=== PATIENT | male | born 1990 | race Caucasian/White ===

== ENCOUNTER 2023-06-28 14:07 | Inpatient (IN) | payer MEDICAID ==
[~2023-06-28] VITALS: Ht 170.2 cm; Wt 77.1 kg
[2023-06-28 14:08] VITALS: BP 134/89; PULSE 79; RESP 17; TEMP 97.4; O2SAT 98
[2023-06-28] MEDS ORDERED: DICYCLOMINE HCL LIQUID 10 MG/5 ML UDC PO ONE (14:25)
[2023-06-28] MEDS ORDERED: ONDANSETRON 4 MG ODT PO ONE (14:25)
[2023-06-28] MEDS ORDERED: ACETAMINOPHEN EXTRA STRENGTH 500 MG TAB PO ONE (14:25)
[2023-06-28 15:32] LABS: BASOPHILS # (AUTO) 0.1 K/uL (0.00-0.22); BASOPHILS % (AUTO) 0.8 % (0.0-2.0); EOSINOPHILS # (AUTO) 0.1 K/uL (0-0.4); EOSINOPHILS % (AUTO) 0.9 % (0.0-4.0); HEMOGLOBIN 12.4 g/dL (12.0-18.0); LYMPHOCYTES # (AUTO) 0.8 K/uL (2.0-11.5); LYMPHOCYTES % (AUTO) 12.2 % (20.5-51.1); MEAN CORPUSCULAR HEMOGLOBIN 31 pg (27-31); MEAN CORPUSCULAR HGB CONC 33 g/dL (33-37); MEAN CORPUSCULAR VOLUME 91.5 fL (80-94); MONOCYTES # (AUTO) 0.9 K/uL (0.8-1.0); MONOCYTES % (AUTO) 12.7 % (1.7-9.3); NEUTROPHILS # (AUTO) 4.9 K/uL (1.8-7.7); NEUTROPHILS % (AUTO) 73.4 % (42.2-75.2); PLATELET COUNT (AUTO) 248 K/uL (140-450); RED BLOOD CELL COUNT(AUTO) 4.05 MIL/uL (4.20-6.10); RED CELL DISTRIBUTION WIDTH 15.4 % (11.6-13.7); WHITE BLOOD COUNT (AUTO) 6.7 K/uL (4.8-10.8)
[2023-06-28 16:02] LABS: ALBUMIN 3.8 g/dL (3.4-5.0); ANION GAP 17.6 (8-16); CARBON DIOXIDE 23.7 mmol/L (21-32); CREATININE 0.9 mg/dL (0.6-1.3); POTASSIUM 3.3 mmol/L (3.5-5.1); TOTAL BILIRUBIN 0.8 mg/dL (0.0-1.0)
[2023-06-28 16:37] LABS: PROTHROMBIN TIME 10.6 secs (10.8-13.4)
[2023-06-28] MEDS ORDERED: NACL 0.9% 1,000 ML IV ONE ×2 (17:05→18:35)
[2023-06-28] MEDS ORDERED: MORPHINE SULFATE 4 MG/ML SYR IVP ONE (17:05)
--- NOTE | 2023-06-28 17:26 | NUR ---
PT AMBULATED TO BED 12
[2023-06-28] MEDS ORDERED: MORPHINE SULFATE 2 MG/ML SYR IVP PRN (18:35)
--- NOTE | 2023-06-28 19:19 | NUR ---
33 Y/O MALE BIB SELF, PATIENT PRESENTS TO ED WITH ABDOMINAL PAIN FOR 2 DAYS, WORSENED TODAY. PT STATES HE HAD NAUSEA AND 5 EPISODES OF EMESIS TODAY. PT ALSO STATES HE HAD BLOODY DIARRHEA TODAY AROUND NOON. PT STATES HE WAS PUSHING CAR UP HILL AND INCREASED HIS PAIN YESTERDAY. PT STATES HE DRINKS 6-8 16OZ BEERS DAILY WITH LAST DRINK THIS MORNING AND METH USE YESTERDAY. SKIN IS PINK/WARM/CLAMMY; AAOX4, AMBULATES WITH EVEN AND STEADY GAIT; LUNGS CLEAR BL; HR EVEN AND REGULAR; PT DENIES ANY FEVER, CP, SOB, OR COUGH AT THIS TIME; PATIENT STATES PAIN OF 8/10 AT THIS TIME; PATIENT POSITIONED FOR COMFORT; HOB ELEVATED; BEDRAILS UP X2; BED DOWN. ER MD MADE AWARE OF PT STATUS. CALL LIGHT WITHIN REACH. PMH: HEART MURMUR, ETOH USE NKA
--- NOTE | 2023-06-28 19:25 | NUR ---
Patient awake and comfortable in bed. Complains of 7/10 generalized abdominal pain. Respirations regular and unlabored. Side rail up and call light within reach.
[2023-06-28] MEDS: MORPHINE SULFATE 4 MG/ML SYR IVP PRN (19:58)
[2023-06-28 21:40] VITALS: BP 130/88; PULSE 68; PULSE 71; RESP 18; TEMP 98.3; O2SAT 98
--- NOTE | 2023-06-28 21:57 | NUR ---
Patient will be admitted to care of Dr. Wheat. Admited to Telemetry. Will go to room 107B. Belongings list completed. Report to Aimee BRANHAM.
[2023-06-28] MEDS ORDERED: POTASSIUM CHLORIDE 10 MEQ TABER PO ONE (22:00)
[2023-06-28 23:51] VITALS: PULSE 67
[2023-06-29] VITALS (7 sets, daily range): BP systolic 121–150; BP diastolic 79–101; PULSE 62–81; RESP 16–18; TEMP 96.9–98.6; O2SAT 98–99
[2023-06-29] MEDS ORDERED: POTASSIUM CHLORIDE 10 MEQ TABER PO ONE ×2 (00:11→01:00)
[2023-06-29] MEDS: MORPHINE SULFATE 4 MG/ML SYR IVP PRN (00:41)
[2023-06-29] MEDS ORDERED: ONDANSETRON 4 MG/2 ML VIAL IVP PRN (06:15)
[2023-06-29 06:54] LABS: ANION GAP 12.4 (8-16); CARBON DIOXIDE 26.8 mmol/L (21-32); CREATININE 0.7 mg/dL (0.6-1.3); POTASSIUM 4.2 mmol/L (3.5-5.1)
[2023-06-29 06:59] LABS: BASOPHILS % (AUTO) 0.6 % (0.0-2.0); EOSINOPHILS # (AUTO) 0.1 K/uL (0-0.4); EOSINOPHILS % (AUTO) 1.9 % (0.0-4.0); HEMATOCRIT 35.2 % (36-52); HEMOGLOBIN 11.9 g/dL (12.0-18.0); LYMPHOCYTES % (AUTO) 14.5 % (20.5-51.1); MEAN CORPUSCULAR HEMOGLOBIN 31 pg (27-31); MEAN CORPUSCULAR HGB CONC 34 g/dL (33-37); MEAN CORPUSCULAR VOLUME 91.8 fL (80-94); MONOCYTES # (AUTO) 0.8 K/uL (0.8-1.0); MONOCYTES % (AUTO) 12.2 % (1.7-9.3); NEUTROPHILS # (AUTO) 4.6 K/uL (1.8-7.7); NEUTROPHILS % (AUTO) 70.8 % (42.2-75.2); PLATELET COUNT (AUTO) 213 K/uL (140-450); RED BLOOD CELL COUNT(AUTO) 3.84 MIL/uL (4.20-6.10); RED CELL DISTRIBUTION WIDTH 15.5 % (11.6-13.7); WHITE BLOOD COUNT (AUTO) 6.6 K/uL (4.8-10.8)
--- NOTE | 2023-06-29 07:18 | NUR ---
ASSUMED CONTINUITY OF CARE. INITIAL ASSESSMENT DONE. KEEP COMFORTABLE ON BED. EXPLAINED USE OF CALL LIGHT/BED/TV/BATHROOM. VERBALIZED UNDERSTANDING. CALL LIGHT WITHIN REACH.
[2023-06-29] MEDS ORDERED: LORazepam 1 MG TAB PO PRN ×2 (08:40)
--- NOTE | 2023-06-29 08:45 | NUR ---
PATIENT HAS BEEN SCREENED AND CATEGORIZED HIGH NUTRITION RISK. PATIENT WILL BE SEEN WITHIN 1-2 DAYS OF ADMISSION. 06/29/23-06/30/23 [facility] REFERRAL RECEIVED FOR PATIENT FOR NAUSEA/VOMITING X3 DAYS ON 06/29/23. KAUSHIK TRE[address] RD
[2023-06-29 09:08] LABS: ALBUMIN 3.6 g/dL (3.4-5.0); BILIRUBIN,DIRECT 0.3 mg/dL (0.0-0.3); TOTAL BILIRUBIN 1.6 mg/dL (0.0-1.0)
[2023-06-29] MEDS: FOLIC ACID 1 MG TAB PO SCH (09:22)
[2023-06-29] MEDS: CYANOCOBALAMIN 100 MCG TAB PO SCH (09:22)
[2023-06-29] MEDS: MULTIVITAMIN 1 TAB PO SCH (09:22)
[2023-06-29] MEDS: THIAMINE 100 MG TAB PO SCH (09:22)
[2023-06-29] MEDS: LACTATED RINGERS 1,000 ML IV SCH ×3 (09:23→22:09)
--- NOTE | 2023-06-29 12:59 | NUR ---
06/29/23 RD INITIAL ASSESSMENT COMPLETED PLEASE REFER TO NUTRITION ASSESSMENT UNDER CARE ACTIVITY FOR ESTIMATED NUTRITIONAL NEEDS. 1. CONTINUE CLEAR LIQUIDS DIET TOLERATED AND ONCE MEDICALLY APPROPRIATE ADVANCE TO FULL LIQUIDS. 2. SECRETARY SPECIALIST ENCOURAGED PATIENT TO FOLLOW PANCREATITIS NUTRITION GIVEN. 3. SECRETARY SPECIALIST WILL CONTINUE TO MONITOR PATIENTS GI FUNCTION, NUTRITION RELATED LAB VALUES, AND PO INTAKE. 4. RD TO FOLLOW-UP 3-5 DAYS, MODERATE RISK REVIEWED BY YORDY MAURER RD
--- NOTE | 2023-06-29 14:25 | NUR ---
DC PLANN[age] YRS OLD MALE PATIENT WAS ADMITTED FROM HOME WITH A DX OF ALCOHOLIC PANCREATITIS. PATIENT HAS A HX OF ALCOHOL ABUSE. CT ABD/PELVIS SHOWED ACUTE PANCREATITIS. LIPASE LEVEL 2389 ADMINISTERED IVF, BANANA BAG AND ATIVAN PO FOR WITHDRAWAL SYMPTOMS. DC PLAN TO GO HOME WHEN STABLE. CM TO FOLLOW
--- NOTE | 2023-06-29 15:43 | NUR ---
Staff Counsel This Airport Manager conducted a discharge planning assessment and during this time, Pt. alerted PERSONNEL RECRUITER that he was homeless and has an alcohol dependency. Additionally, pt. who has family issues, is homeless, has limited to no support, is trying to find employment, and has alcoholic pancreatitis. PERSONNEL RECRUITER provided pt with numerous resources including homelessness and substance abuse. Pt. agreed to explore resources PERSONNEL RECRUITER provided to gain access to fpc and substance treatment. PERSONNEL RECRUITER encouraged pt. to call [facility] to get support for housing/fpc as well as enter a treatment program. Pt. already formed an opinion about any treatment programs, they are not going to help When pt. is discharged, he will need an [employer] PERSONNEL RECRUITER attempted to educate pt. but pt. was not interested. PERSONNEL RECRUITER will remain available as needed.
--- NOTE | 2023-06-29 19:05 | NUR ---
REPORT GIVEN TO ISI MONTANEZ. IVF INFUSING WELL. IN STABLE CONDITION.
--- NOTE | 2023-06-29 19:06 | NUR ---
RECEIVED BEDSIDE REPORT FROM GLADYS URBANO FOR CONTINUITY OF CARE. PATIENT IS AWAKE AND STABLE. A&OX4. VERBALLY RESPONSIVE AND ABLE TO FOLLOW COMMANDS. DENIES PAIN AT THIS TIME. VSS. ON ROOM AIR WITH NO APPARENT S/SX OF ACUTE DISTRESS. RESPIRATIONS EVEN AND UNLABORED. IV SITE TO THE RAC 18G PATENT/INTACT WITH LR INFUSING AT 150 ML/HR. SKIN IS INTACT AND PATIENT IS CONTINENT. UTILIZES BEDSIDE URINAL. PLAN OF CARE AND WHITE COMMUNICATION BOARD UPDATED. ALL SAFETY MEASURES IN PLACE. CALL LIGHT WITHIN REACH. ENCOURAGED TO CALL FOR ANY NEEDS/ASSISTANCE. BED IN LOW/LOCKED POSITION. SIDE RAILS X2 UP. WILL CONTINUE TO MONITOR.
--- NOTE | 2023-06-29 21:05 | NUR ---
PATIENT REPORTS PAIN LEVEL REDUCING TO 2/10 AFTER PRN MEDICATION. RESPIRATIONS EVEN AND UNLABORED WITH NO APPARENT S/SX OF ACUTE DISTRESS. SNACKS PROVIDED PER PATIENT REQUEST. WHITE COMMUNICATION BOARD UPDATED. ALL SAFETY MEASURES IN PLACE. CALL LIGHT WITHIN REACH. ENCOURAGED TO CALL FOR ANY NEEDS/ASSISTANCE. BED IN LOW/LOCKED POSITION. SIDE RAILS X2 UP. WILL CONTINUE TO MONITOR.
--- NOTE | 2023-06-29 23:05 | NUR ---
CHANGED PATIENT'S IVF. TOLERATED WELL. NADR. DENIES PAIN AT THIS TIME. RESPIRATIONS EVEN AND UNLABORED WITH NO APPARENT S/SX OF ACUTE DISTRESS. NO NEEDS AT THIS TIME. WHITE COMMUNICATION BOARD UPDATED. ALL SAFETY MEASURES IN PLACE. CALL LIGHT WITHIN REACH. BED IN LOW/LOCKED POSITION. SIDE RAILS X2 UP. WILL CONTINUE TO MONITOR.
[2023-06-30] VITALS: BP 142/102; PULSE 60; PULSE 66; RESP 18; TEMP 97.8; O2SAT 99
[2023-06-30] MEDS: MORPHINE SULFATE 4 MG/ML SYR IVP PRN (00:20)
--- NOTE | 2023-06-30 01:05 | NUR ---
PATIENT REPORTS PAIN RELIEF TO 2/10 D/T PRN MEDICATION. RESPIRATIONS EVEN AND UNLABORED WITH NO APPARENT S/SX OF ACUTE DISTRESS. NO OTHER NEEDS AT THIS TIME. WHITE COMMUNICATION BOARD UPDATED. ALL SAFETY MEASURES IN PLACE. CALL LIGHT WITHIN REACH. ENCOURAGED TO CALL FOR ANY NEEDS/ASSISTANCE. BED IN LOW/LOCKED POSITION. WILL CONTINUE TO MONITOR.
[2023-06-30] MEDS: LACTATED RINGERS 1,000 ML IV SCH ×3 (02:10→12:52)
[2023-06-30 04:00] VITALS: BP 141/93; PULSE 58; PULSE 67; RESP 16; TEMP 98.3; O2SAT 99
--- NOTE | 2023-06-30 05:05 | NUR ---
ROUNDED ON PATIENT. PATIENT IS STABLE AND ASLEEP NO FACIAL GRIMACING. FLACC=0. CHEST IS RISING AND FALLING SYMMETRICALLY. RESPIRATIONS EVEN AND UNLABORED WITH NO APPARENT S/SX OF ACUTE DISTRESS. WHITE COMMUNICATION BOARD UPDATED. ALL SAFETY MEASURES IN PLACE. CALL LIGHT WITHIN REACH. BED IN LOW/LOCKED POSITION. SIDE RAILS X2 UP. WILL CONTINUE TO MONITOR.
[2023-06-30 06:40] LABS: BASOPHILS % (AUTO) 0.6 % (0.0-2.0); EOSINOPHILS # (AUTO) 0.2 K/uL (0-0.4); HEMATOCRIT 37.1 % (36-52); HEMOGLOBIN 12.5 g/dL (12.0-18.0); LYMPHOCYTES # (AUTO) 1.1 K/uL (2.0-11.5); LYMPHOCYTES % (AUTO) 20.1 % (20.5-51.1); MEAN CORPUSCULAR HEMOGLOBIN 31 pg (27-31); MEAN CORPUSCULAR HGB CONC 34 g/dL (33-37); MEAN CORPUSCULAR VOLUME 91.7 fL (80-94); MONOCYTES # (AUTO) 0.6 K/uL (0.8-1.0); MONOCYTES % (AUTO) 11.1 % (1.7-9.3); NEUTROPHILS # (AUTO) 3.7 K/uL (1.8-7.7); NEUTROPHILS % (AUTO) 65.2 % (42.2-75.2); PLATELET COUNT (AUTO) 229 K/uL (140-450); RED BLOOD CELL COUNT(AUTO) 4.05 MIL/uL (4.20-6.10); RED CELL DISTRIBUTION WIDTH 14.7 % (11.6-13.7); WHITE BLOOD COUNT (AUTO) 5.6 K/uL (4.8-10.8)
[2023-06-30 06:50] LABS: ALBUMIN 3.3 g/dL (3.4-5.0); ANION GAP 11.1 (8-16); CARBON DIOXIDE 29.4 mmol/L (21-32); CREATININE 0.7 mg/dL (0.6-1.3); POTASSIUM 4.5 mmol/L (3.5-5.1); TOTAL BILIRUBIN 2.2 mg/dL (0.0-1.0)
--- NOTE | 2023-06-30 07:02 | NUR ---
ENDORSED PATIENT TO ANDREW RN FOR CONTINUITY OF CARE. PATIENT IS STABLE.
--- NOTE | 2023-06-30 07:46 | NUR ---
PATIENT RECEIVED AT BED SIDE , ON BED REST , SLEEPING , AROUSAL TO VOICE , A/OX4 ,NO SOB , NO COMPLAIN AT THIS TIME , SAFETY ON PLACE , SIDE RAILS UP X2 , BED IN LOWER POSITION , CALL LIGHT WITHIN REACH ON CLEAR LIQUID DIET DIET , SKIN INTACT , AMBULATORY , CONTINENT X2 , PATIENT STILL UNDER OBSERVE .
[2023-06-30 08:00] VITALS: BP 158/95; PULSE 103; PULSE 62; RESP 20; TEMP 96.7; O2SAT 99
[2023-06-30] MEDS: THIAMINE 100 MG TAB PO SCH (08:28)
[2023-06-30] MEDS: FOLIC ACID 1 MG TAB PO SCH (08:28)
[2023-06-30] MEDS: CYANOCOBALAMIN 100 MCG TAB PO SCH (08:29)
[2023-06-30] MEDS: MULTIVITAMIN 1 TAB PO SCH (08:29)
[2023-06-30] MEDS ORDERED: PANTOPRAZOLE 40 MG TABEC PO SCH (09:00)
--- NOTE | 2023-06-30 11:34 | NUR ---
PATIENT ON BED REST , A/OX4 , NO COMPLAIN , US CANCELED , HIS DIET ADVANCE TO REGULAR DIET STILL ON IV FLUID RL 150CC/H , PATIENT STILL UNDER OBSERVE .
[2023-06-30] MEDS ORDERED: HYDROcodone/APAP 10/325 MG 1 TAB TAB PO PRN (11:35)
[2023-06-30] MEDS ORDERED: HYDROcodone/APAP 5/325 MG 1 TAB TAB PO PRN (11:35)
[2023-06-30 15:19] VITALS: BP 142/94; PULSE 71; RESP 20; TEMP 97.1; O2SAT 100
--- NOTE | 2023-06-30 15:42 | NUR ---
PATIENT ON BED REST , A/OX4 , VSS , MED SURGE PATIENT , NO COMPLAIN AT THIS TIME AMBULATORY , CONTINENT , SKIN INTACT , ON REGULAR FOOD TOLERATED , NO N/V ON IV FLUID 150CC/H R/L , PATIENT STILL UNDER OBSERVE .
--- NOTE | 2023-06-30 17:50 | NUR ---
I WENT TO ROOM TO CHECK ON PATIENT , I FOUND BED EMPTY , I CHECK THE REST ROOM NO ONE ON IT CHARGE NURSE INFORMED AND SECURITY INFORMED , THEN I WENT TO LOOK AT HIM ON LOBBY , I CAN NOT FOUND THE PATIENT AND I ASK THE EMPLOY ON LOBBY THEY SAID NO ONE LEFT THROUGH LOBBY , THEN THE SECURITY HE SAID I SOW HIM IN ER AND HE LEFT THROUGH ER , PATIENT REMOVED HIS IV BY HIM SELF WE FOUND IV IN TRASH CAN , PATIENT A/OX4 , AMBULATORY DR EDEN INFORMED HE SAID OK
== END 2023-06-30 17:50 | disposition left against medical advice (07) | DRG 282 ==
LOC: MED 14:07 → MTU 18:39
DX: K85.20 Alcohol induced acute pancreatitis without necrosis or infection (principal); K76.0 Fatty (change of) liver, not elsewhere classified; R16.0 Hepatomegaly, not elsewhere classified; F10.90 Alcohol use, unspecified, uncomplicated
CPT/HCPCS: 36415; 80048; 80053; 80076; 83690; 85025; 85610; 87081; 96361; 96374; 99285; G0482; J2270; Q0162